=== PATIENT | female | born 1985 | race Caucasian/White ===

== ENCOUNTER 2019-11-07 10:22 | Emergency (ER) | payer MEDICAID, SELFPAY ==
[2019-11-07 10:24] VITALS: BP 126/82; PULSE 87; RESP 16; TEMP 36.4; O2SAT 99; BMI 29.0
--- NOTE | 2019-11-07 10:59 | ECG_ITS ---
[facility] Test Date: 2019-11-07 Pat Name: Christa Theodore Department: Room: Gender: Female Subgrade Tester: : 1985 Requested By: Al Pearson Order Number: [id number] Constance MD: Baylee Nunez M.D. Measurements Intervals [place] Rate: 83 P: 54 IN: 130 QRS: 62 QRSD: 92 T: 58 QT: 360 QTc: 425 Interpretive Statements SINUS RHYTHM No previous ECG available for comparison Electronically Signed On 11-07-2019 20:43:22 CDT by Baylee Nunez M.D. [id number]
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
[2019-11-07 11:02] LABS: Arterial Blood Gas Hematocrit 49.9 % (37-47); Blood Gas Allen Test Pos; Blood Gas Operator Identificat CAK; Blood Gas Sample Site Radial, left; Blood Gas Sample Type Arterial; Carboxyhemoglobin 0.6 %THgb (0.4-20.1); HCO3 ABG 16.9 mmol/L (22-26); HGB O2 Sat 98.4 % (95-100); Ionized Calcium Level - ABG 1.2 mmol/L (1.1-1.4); Methemoglobin 0.7 % (0.4-1.5); Oxygen Device ROOM AIR; Oxygen Saturation ABG 99.7; Potassium Level - ABG 3.6 mmol/L (3.5-5.0); Total Hemoglobin 16.3 g/dL (12-16)
[2019-11-07 11:05] LABS: ABG PCO2 18.2 mmHg (35-45); ABG PH Result 7.58 (7.35-7.45)
[2019-11-07] MEDS: LORazepam 2 mg/mL INJ 1 mL IVP (11:22)
[2019-11-07 11:23] VITALS: BP 116/73; PULSE 71; RESP 22; O2SAT 99
[2019-11-07 11:28] LABS: Basophils # 0.1 10^3/uL (0.0-0.1); Basophils % 0.7 %; Eosinophils # 0.2 10^3/uL (0.0-0.8); Eosinophils % 2.5 %; Hemoglobin 15.9 g/dL (11.5-15.3); Lymphocytes # 1.8 10^3/uL (0.8-4.8); Lymphocytes % 21.4 %; Mean Corpuscular HGB Conc 33.1 g/dL (30.0-36.0); Mean Corpuscular Hemoglobin 30.7 pg (28.0-34.0); Mean Corpuscular Volume 92.7 fL (81-99); Mean Platelet Volume 11.2 fL (7.4-10.4); Monocytes # 0.5 10^3/uL (0.2-0.9); Monocytes % 6.1 %; Neutrophils # 5.89 10^3/uL (1.8-7.7); Neutrophils % 68.6 %; Nucleated Red Blood Cells % 0 %; Platelet Count 259 10^3/cmm (130-400); Red Blood Count 5.18 10^6/uL (4.1-5.3); Red Cell Distribution Width 14.2 % (12.1-15.1); White Blood Count 8.6 10^3/uL (4.0-10.0)
[2019-11-07 11:38] LABS: HCG, Serum Qual Negative (Negative)
[2019-11-07 11:45] LABS: Troponin(5th) Baseline 6 ng/L (0-10)
[2019-11-07 11:46] LABS: Alanine Aminotransferase 22 U/L (0-33); Alkaline Phosphatase 89 IU/L (35-105); Anion Gap 18.7 (5-19); Aspartate Amino Transferase 20 U/L (0-32); Blood Urea Nitrogen 7 mg/dL (6-20); Calcium 10.4 mg/dL (8.5-10.5); Carbon Dioxide 19 mmol/L (22-29); Chloride 105 mmol/L (98-107); Creatinine Clr Calc Pharmacy 104.7276; Glomerular Filtration Rate 81.2 mL/min (90-130); Glucose 99 mg/dL (65-115); Osmolality Calculated 284 mOsm/kg (285-295); Potassium 3.7 mmol/L (3.5-5.1); Sodium 139 mmol/L (136-145); Total Bilirubin 0.4 mg/dL (0.15-1.2)
[2019-11-07 11:53] LABS: Alcohol Level < 10 mg/dL (0-10)
[2019-11-07 11:54] VITALS: BP 121/83; PULSE 67; RESP 16; O2SAT 97
[2019-11-07 12:30] VITALS: BP 118/72; PULSE 78; RESP 18
[2019-11-07 12:55] VITALS: BP 118/72; PULSE 78; RESP 18
--- NOTE | 2019-11-08 08:41 | PC.SOCIAL ---
Referral received from ED provider for appt at [facility] [place]. Called [facility] [place] spoke with Ruthie Wild business support coordinator. Provided and Name. She will mail out new patient paperwork and call patient to let her know the process. No further needs identified.Will update patient.
--- NOTE | 2019-11-08 08:44 | PC.SOCIAL ---
Attempted to call patient to update her on previous note. She was unavailable left message with my number for pt to return call.
== END 2019-11-07 12:56 | disposition home or self-care (01) ==
PROVIDERS: Family Medicine; Emergency Provider Physician Assistant
DX: F41.0 Panic disorder [episodic paroxysmal anxiety] (principal); F41.9 Anxiety disorder, unspecified
CPT/HCPCS: 12345; 36415; 36600; 71045; 80051; 80053; 80307; 82810; 83986; 84484; 84703; 85025; 93005; 96374; 99283; J2060

== ENCOUNTER → 2019-11-21 12:36 | Outpatient (BNVA) | payer MEDICAID, SELFPAY | PROVIDERS: Visit Provider Psychiatry & Neurology Psychiatry | DX: F32.9 Major depressive disorder, single episode, unspecified (principal); F41.1 Generalized anxiety disorder; F43.10 Post-traumatic stress disorder, unspecified | CPT/HCPCS: 90792 ==

== ENCOUNTER → 2019-12-20 11:06 | Outpatient (BNVA) | payer MEDICAID, SELFPAY | PROVIDERS: Visit Provider Psychiatry & Neurology Psychiatry | DX: F32.9 Major depressive disorder, single episode, unspecified (principal); F43.10 Post-traumatic stress disorder, unspecified; F41.1 Generalized anxiety disorder | CPT/HCPCS: 99214 ==

== ENCOUNTER → 2019-12-25 11:25 | Outpatient (BNVA) | payer OTHER, SELFPAY | PROVIDERS: Visit Provider Psychiatry & Neurology Psychiatry | DX: F43.10 Post-traumatic stress disorder, unspecified (principal) | CPT/HCPCS: 99214 ==

== ENCOUNTER → 2020-01-02 11:13 | Outpatient (BNVA) | payer OTHER, SELFPAY | PROVIDERS: Visit Provider Psychiatry & Neurology Psychiatry | DX: F43.10 Post-traumatic stress disorder, unspecified (principal); F32.9 Major depressive disorder, single episode, unspecified; F41.1 Generalized anxiety disorder | CPT/HCPCS: 99214 ==

== ENCOUNTER → 2020-01-17 08:05 | Outpatient (BNVA) | payer OTHER, SELFPAY | PROVIDERS: Visit Provider Psychiatry & Neurology Psychiatry | DX: F43.10 Post-traumatic stress disorder, unspecified (principal); F33.9 Major depressive disorder, recurrent, unspecified; F41.1 Generalized anxiety disorder | CPT/HCPCS: 90834; 99214 ==

== ENCOUNTER → 2020-01-24 09:04 | Outpatient (BNVA) | payer OTHER, SELFPAY | PROVIDERS: Visit Provider Counselor Professional | DX: F43.12 Post-traumatic stress disorder, chronic (principal); F33.9 Major depressive disorder, recurrent, unspecified; F41.1 Generalized anxiety disorder | CPT/HCPCS: 90834 ==

== ENCOUNTER → 2020-01-31 08:52 | Outpatient (BNVA) | payer OTHER, SELFPAY | PROVIDERS: Visit Provider Counselor Professional | DX: F33.9 Major depressive disorder, recurrent, unspecified (principal); F43.12 Post-traumatic stress disorder, chronic; F41.1 Generalized anxiety disorder | CPT/HCPCS: 90834 ==

== ENCOUNTER → 2020-02-01 07:44 | Outpatient (BNVA) | payer MEDICAID, SELFPAY | PROVIDERS: Visit Provider Psychiatry & Neurology Psychiatry | DX: F41.1 Generalized anxiety disorder (principal); F43.10 Post-traumatic stress disorder, unspecified; F32.9 Major depressive disorder, single episode, unspecified; Z79.899 Other long term (current) drug therapy; Z03.89 Encounter for observation for other suspected diseases and conditions ruled out | CPT/HCPCS: 80061; 84443; 99214 ==

== ENCOUNTER → 2020-02-15 07:51 | Outpatient (BNVA) | payer OTHER, SELFPAY | PROVIDERS: Visit Provider Counselor Professional | DX: F43.12 Post-traumatic stress disorder, chronic (principal); F33.9 Major depressive disorder, recurrent, unspecified; F41.1 Generalized anxiety disorder | CPT/HCPCS: 90834 ==

== ENCOUNTER → 2020-02-22 08:12 | Outpatient (BNVA) | payer OTHER, SELFPAY | PROVIDERS: Visit Provider Psychiatry & Neurology Psychiatry | DX: F32.9 Major depressive disorder, single episode, unspecified (principal); F41.1 Generalized anxiety disorder | CPT/HCPCS: 99213 ==

== ENCOUNTER → 2020-03-28 12:23 | Outpatient (BNVA) | payer OTHER, SELFPAY | PROVIDERS: Visit Provider Psychiatry & Neurology Psychiatry | DX: F32.9 Major depressive disorder, single episode, unspecified (principal); F41.1 Generalized anxiety disorder | CPT/HCPCS: 99214 ==

== ENCOUNTER 2021-01-02 11:39 | Outpatient (CLI) | payer MEDICAID, SELFPAY ==
--- NOTE | 2021-01-02 11:45 | US_ITS ---
WS: [id number] ULTRASOUND PELVIS TECHNIQUE: Transabdominal and transvaginal. ULTRASOUND PELVIS TECHNIQUE: Transabdominal. CLINICAL INFORMATION: DYSMENORRHEA LMP: : No. COMPARISON: None. FINDINGS: Uterus Orientation: Anteverted. Size: 9.1 cm x 6.0 cm x 4.8 cm. Masses: None. Cervix: Long and closed Endometrium: Suspected polyp in the fundus with feeding vessel measuring 17 x 8.5 x 16.2 mm Adnexa: Right ovary not seen Left ovary size: 3.9 cm x 2.6 cm x 2.4 cm. Left ovary volume: 12.9 ccm3 Multifollicular left ovary. Free fluid: None. Other findings: None. US/US pelvic with transvaginal IMPRESSION: 1. Normal uterus and cervix. 2. Suspected polyp in the fundus with feeding vessel measuring 17 x 8.5 x 16.2 mm. This can be further evaluated with hysteroscopy. 3. Right ovary not visualized. 4. Multifollicular left ovary. 5. No free fluid in the cul-de-sac.
== END 2021-01-02 11:40 | disposition home or self-care (01) ==
PROVIDERS: PCP Family Medicine; Visit Provider Family Medicine
DX: N94.6 Dysmenorrhea, unspecified (principal)
CPT/HCPCS: 76830; 76856

== ENCOUNTER → 2021-01-03 16:22 | Outpatient (BNVA) | payer MEDICAID, SELFPAY | PROVIDERS: PCP Family Medicine; Visit Provider Obstetrics & Gynecology | DX: N93.9 Abnormal uterine and vaginal bleeding, unspecified (principal); R87.613 High grade squamous intraepithelial lesion on cytologic smear of cervix (HGSIL); N76.0 Acute vaginitis; B96.89 Other specified bacterial agents as the cause of diseases classified elsewhere; N84.0 Polyp of corpus uteri | CPT/HCPCS: 87491; 87591; 87661; 88305 ==

== ENCOUNTER → 2021-01-24 08:00 | Outpatient (BNVA) | payer MEDICAID, SELFPAY | PROVIDERS: PCP Family Medicine; Visit Provider Obstetrics & Gynecology | DX: R87.613 High grade squamous intraepithelial lesion on cytologic smear of cervix (HGSIL) (principal); Z20.822 Contact with and (suspected) exposure to COVID-19 | CPT/HCPCS: 87635 ==

== ENCOUNTER 2021-01-29 12:23 | Day surgery (SDC) | payer MEDICAID, SELFPAY ==
[2021-01-27 10:32] VITALS: BMI 31.4
--- NOTE | 2021-01-27 13:13 | ANES.PREANE2 ---
Pre-Anesthetic Assessment Pre-Anesthetic Assessment: Height/Weight: Height 1.68 m Weight 88.451 kg Proposed Procedure: Operation Date: 01/29/21 17:30 Proposed Procedures p Cold Knife Cone Biopsy 67541 R87.613/59363 R10.2(Not Applicable) - Derick Calderon MD s Laparoscopy Diagnostic(Not Applicable) - Derick Calderon MD Was Beta Andra taken within 24 hours: N/A Was Clonidine taken within 24 hours: N/A Social: Social History: Tobacco and No alcohol Exam: Pre-Anes Outpt Exam: alert, oriented x 3 and regular rate & rhythm Airway: Submandibular: WNL Cervical ROM: WNL MP: 2 Dentition: Chipped Metabolic: Metabolic: Morbid obesity Neuropsych: Neuropsych: Anxiety and Depression Anesthetic Plan: ASA status: 3 Anesthesia: General Risk of > 500 ml blood loss (7ml/kg in children): No PFSH Anesthesia PFSH: Medical History (Updated 01/23/21 @ 16:16 by Derick Calderon MD) EMPERATRIZ II (cervical intraepithelial neoplasia II) AN (generalized anxiety disorder) MDD (major depressive disorder) Family History Mother Diabetes Other Cancer Denies family history of CAD (coronary artery disease) Clotting disorder Dementia Hyperlipidemia Psychiatric illness Chronic kidney disease (CKD) Suicide Anesthesia complication Bleeding disorder Lung disease Hypertension Stroke Social History Smoking and tobacco status: current every day smoker e-cigarettes E-Cigarette Details: vaporizer device E-cig/vape details: 0.25mg Quit status (tobacco): considering quitting Second hand smoke exposure: No Smoking risk assessment/counseling performed?: Yes Tobacco counseling given: counseling >3 minutes Current gender identity: Female Data Anesthesia Cardiac Studies: No Data to Display
[2021-01-29 12:36] VITALS: BP 131/81; PULSE 74; RESP 16; TEMP 36.4; O2SAT 96
[2021-01-29 12:55] LABS: Add Urine Microscopic? NO; Charge for UA Resulting for Rev
[2021-01-29] MEDS: scopolamine 1.5 Patch 1 PATCH TRANSDERMA (13:00)
[2021-01-29] MEDS: sodium chloride 0.9% 500 ML IV (13:00)
[2021-01-29 13:12] LABS: OR HCG Qualitative Urine Negative (Negative)
[2021-01-29 13:16] LABS: Bilirubin Urine Neg (Negative); Blood Urine Neg (Negative); Glucose Urine UA Norm (Normal); Ketones Urine Negative (Negative); Leukocyte Esterase Urine Negative (Negative); Nitrate Urine Negative (Negative); Protein Urine Neg (Negative); Sulfosalicylic Acid Urine Negative (Negative); Urine Appearance Hazy (CLEAR); Urine Color Yellow (Yellow); Urobilinogen Urine Norm (Negative); pH Urine 8 (5-7)
[2021-01-29 13:19] LABS: Basophils # 0.1 10^3/uL (0.0-0.1); Basophils % 0.8 %; Eosinophils # 0.3 10^3/uL (0.0-0.8); Eosinophils % 3.8 %; Hematocrit 47.7 % (37.0-47.0); Hemoglobin 15.9 g/dL (11.5-15.3); Lymphocytes # 2.4 10^3/uL (0.8-4.8); Lymphocytes % 30.4 %; Mean Corpuscular HGB Conc 33.3 g/dL (30.0-36.0); Mean Corpuscular Hemoglobin 31.8 pg (28.0-34.0); Mean Corpuscular Volume 95.4 fl (81-99); Mean Platelet Volume 11.4 fL (7.4-10.4); Monocytes # 0.5 10^3/uL (0.2-0.9); Monocytes % 6.6 %; Neutrophils # 4.59 10^3/uL (1.8-7.7); Neutrophils % 57.4 %; Nucleated Red Blood Cells % 0 %; Platelet Count 259 10^3/cmm (130-400); Red Cell Distribution Width 15.1 % (12.1-15.1)
[2021-01-29 13:34] LABS: Anion Gap 15.9 (5-19); Blood Urea Nitrogen 10 mg/dL (6-20); Carbon Dioxide 23 mmol/L (22-29); Chloride 104 mmol/L (98-107); Glomerular Filtration Rate 112.5 mL/min (90-130); Glucose 81 mg/dL (65-115); Osmolality Calculated 286 mOsm/kg (285-295); Potassium 3.9 mmol/L (3.5-5.1); Sodium 139 mmol/L (136-145)
[2021-01-29] MEDS: sodium chloride 0.9% 1,000 ML 30 ML IV (13:45)
--- NOTE | 2021-01-29 14:03 | W.PM.OPSUD ---
Surgery/Procedure H&P Update DATE OF PROCEDURE: January 29, 2021 DATE H&P PERFORMED: 01/27/21 H&P UPDATE INFORMATION: I have reviewed H&P completed within last 30 days, I have examined patient prior to procedure and No changes to prior documentation PREOP DIAGNOSIS: Pelvic pain, abnormal Pap smear PLANNED PROCEDURE: Operation Date: 01/29/21 14:00 Proposed Procedures p Cold Knife Cone Biopsy 23319 R87.613/71758 R10.2(Not Applicable) - Derick Calderon MD s Laparoscopy Diagnostic(Not Applicable) - Derick Calderon MD
--- NOTE | 2021-01-29 14:14 | ANES.PAUD2 ---
Pre-Anesthetic Update Pre-Anesthetic Assessment: Date of Surgery/Procedure: 01/29/21 Preop Diagnosis: Pelvic pain, abnormal Pap smear Proposed Procedure: Operation Date: 01/29/21 14:00 Proposed Procedures p Cold Knife Cone Biopsy 70068 R87.613/61117 R10.2(Not Applicable) - Derick Calderon MD s Laparoscopy Diagnostic(Not Applicable) - Derick Calderon MD Any changes to Pre-Anesthetic Assessment?: No Last Intake: Intake Last Liquid Date 01/28/21 Last Liquid Time 23:00 Last Solid Date 01/28/21 Last Solid Time 23:00 Labs Last 48hrs: Laboratory Results - last 48 hr 01/29/21 01/29/21 01/29/21 12:38 12:38 12:56 WBC 8.0 RBC 5.00 Hgb 15.9 H Hct 47.7 H MCV 95.4 MCH 31.8 MCHC 33.3 RDW 15.1 Plt Count 259 MPV 11.4 H Neut % (Auto) 57.4 Lymph % (Auto) 30.4 Mckenzie % (Auto) 6.6 Eos % (Auto) 3.8 Baso % (Auto) 0.8 Neut # (Auto) 4.59 Lymph # (Auto) 2.4 Mckenzie # (Auto) 0.5 Eos # (Auto) 0.3 Baso # (Auto) 0.1 Nucleated RBC % (a uto) 0 Nucleated RBCs # 0.0 Sodium Potassium Chloride Carbon Dioxide Anion Gap BUN Creatinine GFR Calculation Glucose Calculated Osmolal ity Calcium Urine Color Yellow Urine Appearance Hazy A Urine pH 8 H Ur Specific Gravit y 1.010 Urine Protein Neg Urine Glucose (UA) Norm Urine Ketones Negative Urine Blood Neg Urine Nitrate Negative Urine Bilirubin Neg Prot Sulfosalicyli c Acd Negative Urine Urobilinogen Norm Ur Leukocyte Shelly ase Negative Urine HCG, Qual Negative 01/29/21 12:56 WBC RBC Hgb Hct MCV MCH MCHC RDW Plt Count MPV Neut % (Auto) Lymph % (Auto) Mckenzie % (Auto) Eos % (Auto) Baso % (Auto) Neut # (Auto) Lymph # (Auto) Mckenzie # (Auto) Eos # (Auto) Baso # (Auto) Nucleated RBC % (a uto) Nucleated RBCs # Sodium 139 Potassium 3.9 Chloride 104 Carbon Dioxide 23 Anion Gap 15.9 BUN 10 Creatinine 0.6 GFR Calculation 112.5 Glucose 81 Calculated Osmolal ity 286 Calcium 9.0 Urine Color Urine Appearance Urine pH Ur Specific Gravit y Urine Protein Urine Glucose (UA) Urine Ketones Urine Blood Urine Nitrate Urine Bilirubin Prot Sulfosalicyli c Acd Urine Urobilinogen Ur Leukocyte Shelly ase Urine HCG, Qual Vitals: Temperature 97.6 F 01/29/21 12:36 Temperature Source Temporal Artery S can 01/29/21 12:36 Pulse Rate 74 01/29/21 12:36 Respiratory Rate 16 01/29/21 12:36 Blood Pressure 131/81 01/29/21 12:36 Blood Pressure Alpa n 97 01/29/21 12:36 Pulse Oximetry 96 01/29/21 12:36 Oxygen Delivery Me thod 01/29/21 12:36 Exam: Pre-Anes Outpt Exam: alert, oriented x 3, clear to auscultation bilaterally and regular rate & rhythm Cardiac Studies: No Data to Display
--- NOTE | 2021-01-29 15:14 | SUR.OPER ---
1514 lugols, monsels solution and acetic acid used on the cervix by dr garcia
[2021-01-29 15:38] VITALS: BP 117/75; PULSE 76; RESP 18; TEMP 36.2; O2SAT 99
--- NOTE | 2021-01-29 15:38 | P.OP_ITS ---
Operative Report Date of procedure: January 29, 2021 Pre-op Diagnosis: Pelvic pain, abnormal Pap smear Post-op diagnosis: same Procedure Done: Diagnostic laparoscopy. Lysis of adhesions. Cervical cone biopsy Specimens removed/disposition: Colon biopsy Pathology: Colon biopsy Surgeon: Derick Calderon MD Anesthesia: General Estimated blood loss (mL): 10 IV fluids (mL): 1,100 Urine output (mL): 100 Condition: stable Disposition: PACU Procedure: After informed consent, the patient was taken to the operating room where general anesthesia was administered. The patient was examined under anesthesia and found to have a normal uterus with normal adnexa. She was placed in the dorsal lithotomy position and prepped and draped in sterile fashion. Pre- Procedure Time-Out verifying the correct patient identity, correct procedure verified with consent, correct site and side, correct patient position, availa bility of correct implants and any special equipment or requirements was performed and acknowledge by the OR team. A weighted speculum was placed in the vagina, and the anterior lip of cervix was grasped with the single toothed tenaculum. A uterine manipulator was advanced into the endocervical. Tenaculum was removed after uterine manipulator was secured. The speculum was removed from the vagina. An intraumbilical incision was made with a scalpel. While tenting up on the abdomen, a Verres needle with sleeve was admitted into the intra-abdominal cavity. A saline drop test was performed and noted to be within normal limits. Pneumoperitoneum was attained with 4 liters of carbon dioxide. The Verres needle was removed. A 5 mm trocar and sleeve were admitted into the abdomen and laparoscopic confirmation of location was achieved, A second incision was made 3 cm above the symphysis pubis, and a 5 mm trocar and sleeve were admitted into the abdomen under direct, laparoscopic visualization without complication. A abdominal anatomy survey revealed right abdominal wall adhesions. The pelvic survey shows normal uterus, left and right adnexa. Right adnexa was partially adhered to the colon. The right abdominal pelvic wall adhesions were lysed without complication with laparoscopic scissors. A 5 mm blunt probe was advanced through the second trocar sleeve, and light manipulation of ovaries and uterus to assess the posterior aspects was performed. Carbon dioxide was allowed to escape from the abdomen. The instruments were removed, and skin was closed in a subcuticular fashion with 3-0 Vicryl and covered with Dermabond. The instruments were removed from the vagina, and excellent hemostasis was noted. Then we proceeded to perform the cervical cone biopsy. the patient was placed in the dorsal lithotomy position, and prepped and draped in the usual sterile fashion. A time-out procedure was performed. The patient was examined under anesthesia and found to have a normal uterus with normal adnexa. A weighted speculum was then placed in the patient's vagina and the anterior lip of the cervix grasped with the singed toothed tenaculum A uterine sound was then advanced into the cervix to determine its direction and length. The decending cervical branchs of the uterine arteries were ligated with 2-0 Vicryl bilaterally at the level of the internal os. Attention was then turned to the cervix where it was stain with Lugol?s solution to hightlight the lesion. The paracervical area was then circumferentially infiltrated using Lidocaine 2% with epinephrine. A [employer] Cone Biopsy Excisor was used to cut the cone biopsy in circular fashion and following removal of the specimen a suture was placed at the 12 o?clock location and fixed in formalin. Bleeding was minimal. The patient tolerated the procedure well, sponge, lap and needle counts were correct times two She was taken to the recovery room in good condition. The patient tolerated the procedure well, and sponge, lap and needle count were correct times two. The patient taken to the recovery room in good condition.
[2021-01-29 15:40] VITALS: BP 117/73; PULSE 77; RESP 18; O2SAT 99
[2021-01-29 15:46] VITALS: BP 124/68; PULSE 77; RESP 18; TEMP 36.2; O2SAT 99
[2021-01-29 15:50] VITALS: BP 118/77; PULSE 74; RESP 15; TEMP 36.4; O2SAT 97
[2021-01-29] MEDS: HYDROcodone-acetaminophen 5-325 mg Tablet 1 TAB PO (15:59)
[2021-01-29 16:05] VITALS: BP 123/71; PULSE 71; RESP 16; TEMP 36.6; O2SAT 98
--- NOTE | 2021-01-29 16:15 | ANE.PACU2 ---
Inpatient post-anesthesia follow up: Airway intact: Yes Vital signs: Temperature 98 F Pulse Rate 71 Respiratory Rate 16 Blood Pressure 123/71 Pulse Oximetry 98 Oxygen Delivery Me thod Room Air Oxygen Flow Rate 8 Fraction of Inspir ed Oxygen Hydration adequate: Yes Nausea and vomiting: No Pain level: 2 Mental status: Baseline
== END 2021-01-29 16:46 | disposition home or self-care (01) ==
PROVIDERS: PCP Family Medicine; Visit Provider Obstetrics & Gynecology
PROC: 0UB97ZZ Excision of Uterus, Via Natural or Artificial Opening (ICD-10-PCS; CPT 57520; principal; 2021-01-29 13:50)
PROC: (CPT 49320; 2021-01-29 13:50)
DX: R10.2 Pelvic and perineal pain (principal); R89.6 Abnormal cytological findings in specimens from other organs, systems and tissues; E66.01 Morbid (severe) obesity due to excess calories; Z68.31 Body mass index [BMI] 31.0-31.9, adult; F41.9 Anxiety disorder, unspecified; F32.9 Major depressive disorder, single episode, unspecified; Z83.3 Family history of diabetes mellitus; F17.290 Nicotine dependence, other tobacco product, uncomplicated
CPT/HCPCS: 49320; 57522; 36415; 80048; 81003; 81025; 84703; 85025; 86850; 86900; 88307; 96365; J0690; J1100; J1885; J2405; J2704; J2710; J3010; J3490; J7030; J7040

== ENCOUNTER 2021-03-15 15:35 | Emergency (ER) | payer MEDICAID, SELFPAY ==
[2021-03-15 15:45] VITALS: BP 115/79; PULSE 69; RESP 16; TEMP 36.6; O2SAT 97
--- NOTE | 2021-03-15 16:00 | W.ED.WOUNDLC ---
HPI - Wound/Laceration General: Chief Complaint: Wound/Laceration Stated Complaint: Sliced finger rt ring finger Time Seen by Provider: 03/15/21 15:49 Source: patient Mode of arrival: ambulatory Limitations: no limitations History of Present Illness: HPI narrative: 35-year-old female presents to the ER today for right ring finger laceration. Patient reports she was using a mandolin to thinly slice something when it slipped and she caught her finger. Patient reports the entire tip of the ring finger is gone. She reports bleeding would not stop at home that is why she came into the ER. Patient reports pain and burning. She reports normal movement in the finger. Patient's tetanus status is unknown. Onset (ago): minute(s) Extremity Location: Right: hand (ring finger) Patient tetanus UTD: No Context: accidental Associated symptoms: Denies chills, fever(s), nausea or vomiting Review of Systems General: Reports: 10 or more systems reviewed and unremarkable except in HPI and below Const: Denies: fever(s), chills or body aches ENMT: Denies: throat pain, nasal discharge or nasal congestion Card: Denies: chest pain or palpitations Resp: Denies: dyspnea, productive cough or wheezing GI: Denies: abdominal pain, nausea, vomiting, diarrhea or constipation Musc: Reports: extremity pain (right ring finger); Denies: neck pain or back pain Skin/Breast: Reports: other (laceration to R ring finger) Neuro: Denies: headache(s), numbness in extremities or dizziness PFSH ED PFSH: Medical History Aftercare following surgery of the genitourinary system EMPERATRIZ II (cervical intraepithelial neoplasia II) AN (generalized anxiety disorder) MDD (major depressive disorder) Surgical History History of appendectomy History of cholecystectomy History of tubal ligation S/P conization of cervix 01/29/2021- diagnostic laparoscopy, lysis of adhesions, cervical cone biopsy performed by Dr. Calderon at [facility] Family History Mother Diabetes Other Cancer Denies family history of CAD (coronary artery disease) Clotting disorder Dementia Hyperlipidemia Psychiatric illness Chronic kidney disease (CKD) Suicide Anesthesia complication Bleeding disorder Lung disease Hypertension Stroke Social History Smoking and tobacco status: current every day smoker cigarettes Packs smoked per day: 1 Alcohol intake: current Alcohol intake frequency: 3 or more drinks per day Alcohol type: beer Current gender identity: Female Physical Exam Const: COMMON NORMALS: average body habitus and patient oriented x3 GENERAL APPEARANCE: cooperative; not comfortable HENMT: COMMON NORMALS: normocephalic, external ears normal and Normal external nose present HEAD & SCALP: normocephalic NOSE: Normal external nose present EXTERNAL EAR: Yes external ears normal Eye: COMMON NORMALS: conjunctivae normal GENERAL EYE: appearance normal, both eyes and all related structures CONJUNCTIVA: Yes conjunctivae normal Neck/C-Spine: COMMON NORMALS: full ROM Resp: COMMON NORMALS: normal respiratory effort EFFORT & INSPECTION: Yes able to speak in complete sentences Cardio: COMMON NORMALS: regular rate and regular rhythm RATE: regular rate RHYTHM: regular rhythm Extremity: COMMON NORMALS: full ROM RIGHT UPPER EXTREMITY: Yes hand & digits Right hand and digits: Yes inspection (avulsion laceration to the R ring finger. ), Yes ROM exam (normal) and Yes tendon exam (normal) Neuro: COMMON NORMALS: patient oriented x3, moves all extremities, no sensory deficits noted and gait normal Psych: COMMON NORMALS: mental status grossly normal, Normal thought process present, cooperative, normal affect and speech normal SPEECH: Yes normal speech THOUGHT PROCESS: Normal thought process present Skin: TRAUMA: laceration (avulsion laceration to the distal tip of the R ring finger) avulsion; sensation not intact (decreased sensation tip of finger (pain however reported)) NAILS: normal OTHER: no nail involvement Procedures Laceration Laceration 1: Site: hand Side (If applicable): right Description: other (avulsion) Depth: simple, single layer Technique: other (pressure dressing, no way for closure) Course ED course: Patient presents to the ER today for right distal ring finger avulsion laceration. Patient reports she was using a mandolin when this happened. Her tetanus status is unknown at this time. Vital Signs: Vital signs: Vital Signs Temperature 97.9 F 03/15/21 15:45 Pulse Rate 69 03/15/21 15:45 Respiratory Rate 16 03/15/21 15:45 Blood Pressure 115/79 03/15/21 15:45 Pulse Oximetry 97 03/15/21 15:45 MDM - Wound/Laceration MDM Narrative: Medical decision making narrative: 35-year-old female presents to the ER today for right ring finger laceration. Patient was using a mandolin when she sliced the distal tip of the right ring finger off. Patient reports active bleeding. Patient was offered a digital block however refused at this time. We will go ahead and do oral Toradol for pain. Wound care was discussed. Wound was dressed with a Vaseline gauze and pressure dressing to stop the bleeding. Tourniquet applied for 5 minutes to right ring finger. Patient given Vaseline gauze to take home and change dressing in 48 hours. Follow-up with PCP in 5 days for wound check. Return to the ER with any new or worsening symptoms. Tdap updated in ER today. Critical Care Time Critical Care Time: Critical Care Time: No Discharge Plan Discharge Patient Disposition: Home Clinical Impression: Laceration of right ring finger Qualifiers: Encounter type: initial encounter Damage to nail status: without damage Foreign body presence: without foreign body Qualified Code(s): S61.214A - Laceration without foreign body of right ring finger without damage to nail, initial encounter Condition: Stable Prescriptions: No Action ibuprofen 800 mg tablet 800 mg PO TID PRN (Reason: pain) Qty: 60 RF: 0 hydrocodone-acetaminophen 5-325 mg tablet 1 tab PO Q4H PRN (Reason: pain) Qty: 20 RF: 0 acetaminophen 325 mg capsule 325 mg PO Q4H PRN (Reason: fever or pain) Qty: 60 RF: 0 Discharge Orders: Discharge ED (Routine); Ordered 03/15/21 Ordered By: Olga Mckeon Referrals: Chris Weinberg MD [Primary Care Provider] - Discharge Diet: Usual diet Discharge Activity: Resume usual activity Patient Instructions: Opioid Safety Activity Restrictions/Additional Instructions: Wound care as discussed. Leave current dressing on for 48 hours. And off thin and clean with warm soapy water and replace dressing as discussed. Follow-up with PCP in 5 to 7 days for wound check. Return to the ER with any new or worsening symptoms. Coding Level of Care Code ED Microbiological Lab Technician for Isma Nguyen
[2021-03-15] MEDS: ketorolac 10 mg Tablet PO (16:01)
[2021-03-15] MEDS: tetanus-dipt-pertussis 0.5 mL SDV IM (16:15)
== END 2021-03-15 16:23 | disposition home or self-care (01) ==
PROVIDERS: Emergency Provider Physician Assistant; PCP Family Medicine
DX: S61.214A Laceration without foreign body of right ring finger without damage to nail, initial encounter (principal); F17.210 Nicotine dependence, cigarettes, uncomplicated; W26.8XXA Contact with other sharp object(s), not elsewhere classified, initial encounter; Z23 Encounter for immunization
CPT/HCPCS: 90471; 90715; 99283

== ENCOUNTER → 2021-06-06 08:54 | Outpatient (BNVA) | payer MEDICAID, SELFPAY | PROVIDERS: PCP Family Medicine; Visit Provider Obstetrics & Gynecology | DX: Z20.822 Contact with and (suspected) exposure to COVID-19 (principal) | CPT/HCPCS: 87635 ==

== ENCOUNTER 2021-06-11 11:11 | Observation (INO) | payer MEDICAID, SELFPAY ==
[2021-06-09 11:09] VITALS: BMI 29.0
--- NOTE | 2021-06-09 15:54 | P.ANESASSM_ITS ---
Pre-Anesthetic Assessment Height/Weight: Height 1.7 m Weight 83.915 kg Preop Diagnosis: Pelvic pain, abnormal Pap smear Operation Date: 06/11/21 08:10 Proposed Procedures p Total Vaginal [id number]/r10.2.G89.29(Not Applicable) - Derick Calderon MD Familial anesthetic complications: None Was Beta Andra taken within 24 hours: N/A Was Clonidine taken within 24 hours: N/A Social Tobacco and No alcohol Exam alert, oriented x 3, clear to auscultation bilaterally and regular rate & rhythm Airway Submandibular: within normal limits Cervical ROM: within normal limits Mallampati: Class II Dentition: chipped Pulmonary Chronic Obstructive Pulmonary Disease Neuropsych Anxiety and Depression Anesthetic Plan ASA status: 2 Anesthesia: General Risk of > 500 ml blood loss (7ml/kg in children): Yes, adequate IV access and fluids planned Medications/Allergies Home Medications Medication Instructions Recorded Confirmed Last Taken Type ibuprofen 800 mg tablet 800 mg PO TID PRN #60 tab 01/29/21 06/09/21 Unknown Rx Allergies Allergy/AdvReac Type Severity Reaction Status Date / Time No Known Allergies Allergy Verified 06/09/21 11:08 [facility] Anesthesia Medical History Aftercare following surgery of the genitourinary system EMPERATRIZ II (cervical intraepithelial neoplasia II) AN (generalized anxiety disorder) MDD (major depressive disorder) Surgical History History of appendectomy History of cholecystectomy History of tubal ligation S/P conization of cervix 01/29/2021- diagnostic laparoscopy, lysis of adhesions, cervical cone biopsy performed by Dr. Calderon at [facility] Family History Mother Diabetes Other Cancer Denies family history of CAD (coronary artery disease) Clotting disorder Dementia Hyperlipidemia Psychiatric illness Chronic kidney disease (CKD) Suicide Anesthesia complication Bleeding disorder Lung disease Hypertension Stroke Social History Smoking and tobacco status: current every day smoker cigarettes Packs smoked per day: 1 Alcohol intake: current Alcohol intake frequency: 3 or more drinks per day Alcohol type: beer Current gender identity: Female Female Reproductive History Date of last menstrual period: 05/26/21 Data Anesthesia Cardiac Studies: No Data to Display
[2021-06-11] VITALS (26 sets, daily range): BP systolic 99–133; BP diastolic 62–91; PULSE 52–86; RESP 12–19; TEMP 36.1–36.7; O2SAT 92–100
[2021-06-11] MEDS: sodium chloride 0.9% 500 ML IV (07:07)
[2021-06-11] MEDS: scopolamine 1.5 Patch 1 PATCH TRANSDERMA (07:08)
[2021-06-11 07:22] LABS: Basophils # 0.1 10^3/uL (0.0-0.1); Basophils % 0.8 %; Eosinophils # 0.4 10^3/uL (0.0-0.8); Eosinophils % 4.2 %; Hematocrit 50.9 % (37.0-47.0); Hemoglobin 16.8 g/dL (11.5-15.3); Lymphocytes # 2.4 10^3/uL (0.8-4.8); Lymphocytes % 27.8 %; Mean Corpuscular Hemoglobin 30.7 pg (28.0-34.0); Mean Corpuscular Volume 92.9 fl (81-99); Mean Platelet Volume 11.1 fL (7.4-10.4); Monocytes # 0.6 10^3/uL (0.2-0.9); Monocytes % 7.4 %; Neutrophils # 5.01 10^3/uL (1.8-7.7); Nucleated Red Blood Cells % 0 %; Platelet Count 285 10^3/cmm (130-400); Red Blood Count 5.48 10^6/uL (4.1-5.3); Red Cell Distribution Width 16.3 % (12.1-15.1); White Blood Count 8.5 10^3/uL (4.0-10.0)
[2021-06-11] MEDS: midazolam 1 mg/mL INJ 2 mL 2 MG IVP (07:31)
[2021-06-11 07:35] LABS: OR HCG Qualitative Urine Negative (Negative)
[2021-06-11] MEDS: sodium chloride 0.9% 1,000 ML 30 ML IV (07:36)
[2021-06-11 07:39] LABS: Alanine Aminotransferase 14 U/L (0-33); Albumin Level 4.6 g/dL (3.5-5.2); Alkaline Phosphatase 88 IU/L (35-105); Anion Gap 16.4 (5-19); Aspartate Amino Transferase 20 U/L (0-32); Blood Urea Nitrogen 13 mg/dL (6-20); Calcium 9.4 mg/dL (8.5-10.5); Carbon Dioxide 20 mmol/L (22-29); Chloride 105 mmol/L (98-107); Globulin 3.3 g/dL (1.3-4.6); Glomerular Filtration Rate 94.2 mL/min (90-130); Glucose 139 mg/dL (65-115); Osmolality Calculated 286 mOsm/kg (285-295); Potassium 4.4 mmol/L (3.5-5.1); Sodium 137 mmol/L (136-145); Total Bilirubin 0.5 mg/dL (0.15-1.2); Total Protein 7.9 g/dL (6.6-8.7)
--- NOTE | 2021-06-11 08:05 | W.PM.OPSUD ---
Surgery/Procedure H&P Update DATE OF PROCEDURE: June 11, 2021 DATE H&P PERFORMED: 02/11/22 H&P UPDATE INFORMATION: I have reviewed H&P completed within last 30 days and No changes to prior documentation PREOP DIAGNOSIS: chronic pelvic pain PLANNED PROCEDURE: Operation Date: 06/11/21 08:10 Proposed Procedures p Total Vaginal [id number]/r10.2.G89.29(Not Applicable) - Derick Calderon MD
[2021-06-11] MEDS: ceFOXitin 2,000 MG in sodium chloride 0.9% (plus) 50 ML 100 MG IV (08:14)
[2021-06-11 08:36] LABS: Add Urine Microscopic? NO; Charge for UA Resulting for Rev
--- NOTE | 2021-06-11 08:40 | P.ANESUD_ITS ---
Pre-Anesthetic Update Pre-Anesthetic Assessment: Date of Surgery/Procedure: 06/11/21 Preop Daisy gnosis: chronic pelvic pain Proposed Procedure: Operation Date: 06/11/21 08:10 Proposed Procedures p Total Vaginal [id number]/r10.2.G89.29(Not Applicable) - Derick Calderon MD Any changes to Pre-Anesthetic Assessment?: No Last Intake: Intake Last Liquid Date 06/10/21 Last Liquid Time 22:00 Last Solid Date 06/10/21 Last Solid Time 19:30 Labs Last 48hrs: Short CBC 06/11/21 Range/Units 07:05 WBC 8.5 (4.0-10.0) 10^3/ uL Hgb 16.8 H (11.5-15.3) g/dL Hct 50.9 H (37.0-47.0) % MCV 92.9 (81-99) fl Plt Count 285 (130-400) 10^3/c mm Neut % (Auto) 59.0 % Neut # (Auto) 5.01 (1.8-7.7) 10^3/u L BMP 06/11/21 07:05 Sodium 137 Potassium 4.4 Chloride 105 Carbon Dioxide 20 L BUN 13 Creatinine 0.7 Glucose 139 H Calcium 9.4 Liver Function 06/11/21 Range/Units 07:05 Total Bilirubin 0.5 (0.15-1.2) mg/dL AST 20 (0-32) U/L ALT 14 (0-33) U/L Alkaline Phosphata se 88 (35-105) IU/L Albumin 4.6 (3.5-5.2) g/dL Vitals: Temperature 97.5 F L 06/11/21 06:55 Temperature Source Temporal Artery S can 06/11/21 06:55 Pulse Rate 72 06/11/21 06:55 Respiratory Rate 16 06/11/21 06:55 Blood Pressure 122/80 06/11/21 06:55 Blood Pressure Alpa n 94 06/11/21 06:55 Pulse Oximetry 99 06/11/21 06:55 Oxygen Delivery Me thod 06/11/21 06:56 Exam: Pre-Anes Outpt Exam: alert, oriented x 3, clear to auscultation bilater ally and regular rate & rhythm Cardiac Studies: No Data to Display
[2021-06-11 09:12] LABS: Bilirubin Urine Neg (Negative); Blood Urine Neg (Negative); Glucose Urine UA Norm (Normal); Ketones Urine Negative (Negative); Leukocyte Esterase Urine Negative (Negative); Nitrate Urine Negative (Negative); Protein Urine Neg (Negative); Urine Appearance Clear (CLEAR); Urine Color Yellow (Yellow); Urobilinogen Urine Norm (Negative); pH Urine 5 (5-7)
--- NOTE | 2021-06-11 09:30 | P.OP_ITS ---
Operative Report Date of procedure: June 11, 2021 Pre-op diagnosis: Preop Diagnosis chronic pelvic pain Post-op diagnosis: Chronic pelvic pain Post-op findings: Enlarged uterus Procedure done: Total vaginal hysterectomy Specimens removed/disposition: Uterus Surgeon: Derick Calderon MD Estimated blood loss: 50 mL IV fluids (mL): 800 Urine output (mL): 100 Procedure: After informed consent and risks, benefits, indications and alternatives reviewed with the patient was taken to the operating room. The patient was placed in dorsal lithotomy position prepped, and draped in the usual sterile fashion. The pre-procedure timeout verifying the correct patient, procedure, site and side, could not requirements was performed and acknowledge by the OR team. A Escamilla catheter was placed. A Bookwalter vaginal retractor was placed into the vagina in usual manner visualize the cervix. Cervix was grasped with a single tooth tenaculum and circumferentially infiltrated with 2% Xylocaine with epinephrine. Then cervix was circumferentially incised with bovie and the bladder was dissected off the pubovesical cervical fascia anteriorly with a sponge stick and Metzenbaum scissors. The anterior peritoneal reflection was identified and the anterior cul-de-sac was entered sharply with Metzenbaum scissors. The same procedure was performed posteriorly and a posterior colpotomy was made through the posterior cul-de-sac space without difficulty and the posterior blade of the Bookwalter vaginal retractor was advanced posteriorly into the cul-de-sac. At this time, the left and right uterosacral ligaments were isolated and ligated with 0 Vicryl. The Enseal device was placed over the uterosacral ligaments on either side and was then used in a serial fashion up through the cardinal ligaments bilaterally cross-clamped, cut, and sealed with the Enseal device. Finally, the uterine arteries were cross-clamped, cut, sealed and ligated with the Enseal device. Hemostasis was assured. The broad ligaments were then serially clamped, sealed and cut with the Enseal device on both sides. Excellent hemostasis was visualized. Both cornua were clamped, sealed and cut with the Enseal device. T hen the pedicles were then suture ligated with excellent hemostasis. The uterus was excised and submitted for pathologic evaluation. No other abnormalities were noted in the pelvic cavity. The peritoneum was then closed in a pursestring fashion with 0 Vicryl suture. The vaginal cuff angles were closed with [id number] #0 Vicryl suture on both sides and transfixed with the ipsilateral cardinal and uterosacral ligaments. The remainder of the vaginal cuff was closed with #0 Vicryl in a running locked fashion. At this time, instruments were removed from the vagina at hemostasis assured. Escamilla catheter was noted yielding clear norma urine. The patient was taken out of dorsal lithotomy position and awakened from the general anesthesia. The patient tolerated the procedure well and was taken to the PACU recovery room in a stable condition. Sponge, lap, needle and instruments counts were correct x3.
[2021-06-11] MEDS: fentaNYL 50 mcg/mL INJ 2mL IVP ×2 (09:54→10:00)
[2021-06-11] MEDS: HYDROmorphone 1 mg/mL INJ 1 mL 0.5 MG IVP ×3 (10:08→10:35)
[2021-06-11] MEDS: sodium chloride 0.9% 1,000 ML 30 ML (10:38)
--- NOTE | 2021-06-11 10:43 | PC.NURSE ---
Report given to REFUGIO Grimes.
--- NOTE | 2021-06-11 12:49 | ANE.PACU2 ---
Inpatient post-anesthesia follow up: Airway intact: Yes Vital signs: Temperature 97.3 F Pulse Rate 59 Respiratory Rate 14 Blood Pressure 107/68 Pulse Oximetry 96 Oxygen Delivery Me thod Room Air Oxygen Flow Rate 6 Fraction of Inspir ed Oxygen Hydration adequate: Yes Nausea and vomiting: No Pain level: 3 Mental status: Baseline
[2021-06-11] MEDS: ketorolac 30 mg/mL INJ IVP ×2 (15:02→21:11)
[2021-06-11] MEDS: HYDROcodone-acetaminophen 5-325 mg Tablet PO ×2 (15:56→21:55)
[2021-06-11] MEDS: dextrose 5%-lactated ringers 1,000 ML 125 ML IV (19:43)
[2021-06-11] MEDS: hyDROXYzine 25 mg Capsule 50 MG PO (21:12)
[2021-06-12] MEDS: HYDROcodone-acetaminophen 5-325 mg Tablet PO ×2 (03:56→09:56)
[2021-06-12 04:10] VITALS: BP 112/67; PULSE 52; RESP 16; O2SAT 98
[2021-06-12 04:33] LABS: Hematocrit 42.9 % (37.0-47.0); Mean Corpuscular HGB Conc 32.6 g/dL (30.0-36.0); Mean Corpuscular Volume 95.1 fl (81-99); Mean Platelet Volume 11.7 fL (7.4-10.4); Platelet Count 235 10^3/cmm (130-400); Red Blood Count 4.51 10^6/uL (4.1-5.3); Red Cell Distribution Width 16.1 % (12.1-15.1); White Blood Count 15.9 10^3/uL (4.0-10.0)
[2021-06-12] MEDS: docusate sodium 100 mg Capsule PO (09:56)
[2021-06-12] MEDS: ibuprofen 800 mg tablet PO (09:56)
--- NOTE | 2021-06-12 12:12 | P.DS_ITS ---
Discharge Providers TREATING ENGINEER Date of Admission: 06/11/21 11:11 Date of Discharge: 06/12/21 Attending Provider at Admission: Derick Calderon MD Attending Provider at Discharge: Derick Calderon MD Primary TREATING ENGINEER: Derick Calderon MD Primary Care Provider: Chris Weinberg MD Reason for Visit Reason for Visit: chronic pelvic pain R10.2,G89.29 Brief History: Mrs. Dallas is a 35-year-old female with a history of chronic pelvic pain unresponsive to medical management. Hospital Course Hospital Course Mrs. Dallas admitted for planned total vaginal hysterectomy due to chronic pelvic pain unresponsive to medical management. The total vaginal hysterectomy was performed without complications. Overnight observation uneventful. She is status post total vaginal hysterectomy postoperative day one, afebrile and hemodynamically stable. Tolerating diet well. Ambulating without difficulty. Passing flatus. Had adequate urine output. Physical Exam Narrative: GA: Alert and oriented ?3. HEENT: WNL. Heart: Regular rate and rhythm. Lungs: Clear to auscultation bilaterally. Abdomen: Bowel sounds present, minimal tenderness. PAPER FOLDER: No bleeding. Extremities: No edema, no cyanosis, no calves pain. Urinary Catheter Management: Escamilla: Cath Placed During This Visit: yes, but has since been removed by the nurse Reason for Continuing Indwelling Catheter: Decision to DC Catheter Urinary Catheter Date of Insertion: 06/11/21 Urinary Catheter Time of Insertion: 07:08 Date Urinary Catheter Removed: 06/12/21 Time Urinary Catheter Discontinued: 04:00 History History History 5 Term 5 Miscarriages/Ectopic 0 0 Living Children 5 Discharge Data Studies Completed and Pending Pending at discharge Category Date Time Status Pathology: Surgical [PTH] Routine Pth 06/11/21 09:34 Received Laboratory Results WBC 15.9 10^3/uL (4.0-10.0) H 06/12/21 04:00 RBC 4.51 10^6/uL (4.1-5.3) 06/12/21 04:00 Hgb 14.0 g/dL (11.5-15.3) 06/12/21 04:00 Hct 42.9 % (37.0-47.0) 06/12/21 04:00 MCV 95.1 fl (81-99) 06/12/21 04:00 MCH 31.0 pg (28.0-34.0) 06/12/21 04:00 MCHC 32.6 g/dL (30.0-36.0) 06/12/21 04:00 RDW 16.1 % (12.1-15.1) H 06/12/21 04:00 Plt Count 235 10^3/cmm (130-400) 06/12/21 04:00 MPV 11.7 fL (7.4-10.4) H 06/12/21 04:00 Neut % (Auto) 59.0 % 06/11/21 07:05 Lymph % (Auto) 27.8 % 06/11/21 07:05 [place] % (Auto) 7.4 % 06/11/21 07:05 Eos % (Auto) 4.2 % 06/11/21 07:05 Baso % (Auto) 0.8 % 06/11/21 07:05 Neut # (Auto) 5.01 10^3/uL (1.8-7.7) 06/11/21 07:05 Lymph # (Auto) 2.4 10^3/uL (0.8-4.8) 06/11/21 07:05 [place] # (Auto) 0.6 10^3/uL (0.2-0.9) 06/11/21 07:05 Eos # (Auto) 0.4 10^3/uL (0.0-0.8) 06/11/21 07:05 Baso # (Auto) 0.1 10^3/uL (0.0-0.1) 06/11/21 07:05 Nucleated RBC % (auto) 0 % 06/11/21 07:05 Nucleated RBCs # 0.0 /100WBC 06/11/21 07:05 Sodium 137 mmol/L (136-145) 06/11/21 07:05 Potassium 4.4 mmol/L (3.5-5.1) 06/11/21 07:05 Chloride 105 mmol/L (98-107) 06/11/21 07:05 Carbon Dioxide 20 mmol/L (22-29) L 06/11/21 07:05 Anion Gap 16.4 (5-19) 06/11/21 07:05 BUN 13 mg/dL (6-20) 06/11/21 07:05 Creatinine 0.7 mg/dL (0.5-0.9) 06/11/21 07:05 GFR Calculation 94.2 mL/min (90-130) 06/11/21 07:05 Glucose 139 mg/dL (65-115) H 06/11/21 07:05 Calculated Osmolality 286 mOsm/kg (285-295) 06/11/21 07:05 Calcium 9.4 mg/dL (8.5-10.5) 06/11/21 07:05 Total Bilirubin 0.5 mg/dL (0.15-1.2) 06/11/21 07:05 AST 20 U/L (0-32) 06/11/21 07:05 ALT 14 U/L (0-33) 06/11/21 07:05 Alkaline Phosphatase 88 IU/L (35-105) 06/11/21 07:05 Total Protein 7.9 g/dL (6.6-8.7) 06/11/21 07:05 Albumin 4.6 g/dL (3.5-5.2) 06/11/21 07:05 Globulin 3.3 g/dL (1.3-4.6) 06/11/21 07:05 Urine Color Yellow (Yellow) 06/11/21 07:05 Urine Appearance Clear (CLEAR) 06/11/21 07:05 Urine pH 5 (5-7) 06/11/21 07:05 Ur Specific [place] 1.020 (1.005-1.030) 06/11/21 07:05 Urine Protein Neg (Negative) 06/11/21 07:05 Urine Glucose (UA) Norm (Normal) 06/11/21 07:05 Urine Ketones Negative (Negative) 06/11/21 07:05 Urine Blood Neg (Negative) 06/11/21 07:05 Urine Nitrate Negative (Negative) 06/11/21 07:05 Urine Bilirubin Neg (Negative) 06/11/21 07:05 Urine Urobilinogen Norm mg/dL (Negative) 06/11/21 07:05 Ur Leukocyte Esterase Negative (Negative) 06/11/21 07:05 Urine HCG, Qual Negative (Negative) 06/11/21 06:51 Blood Type A Positive 06/11/21 07:05 Rho(D) Type Positive 06/11/21 07:05 Antibody Screen Negative 06/11/21 07:05 Vitals Last Vital Signs Temp 97.5 F L 06/11/21 15:00 Pulse 52 L 06/12/21 04:10 Resp 16 06/12/21 04:10 BP 112/67 06/12/21 04:10 Pulse Ox 98 06/12/21 04:10 Discharge Plan Discharge Patient Disposition: Home Condition: Stable Prescriptions: New ibuprofen 800 mg tablet 800 mg PO TID PRN (Reason: pain) Qty: 60 0RF hydrocodone-acetaminophen 5-325 mg tablet 1 tab PO Q4H PRN (Reason: pain) Qty: 25 0RF acetaminophen 325 mg capsule 325 mg PO Q4H PRN (Reason: fever or pain) Qty: 60 0RF Continued ibuprofen 800 mg tablet 800 mg PO TID PRN (Reason: pain) Qty: 60 0RF Discharge Orders: Discharge Order (Routine); Ordered 06/12/21 Ordered By: Derick Calderon Referrals: Derick Calderon MD [Physician] - 06/24/21 8:30 am ( Your 2week follow up with Dr Calderon will be on June 24 at 8:30am Your 6week follow up with Dr Calderon will be July 22 at 8:45am) Discharge Diet: Usual diet Discharge Activity: Limit activity as instructed Patient Instructions: Hydrocodone/Acetaminophen (By mouth), Ibuprofen (By mouth), Vaginal Hysterectomy (GEN), OB Abdominal Surgery - [facility], OB Discharge Report, OB Food/Drug Interaction Guide, Opioid Safety Activity Restrictions/Additional Instructions: 1. Please call [facility] on next working day to make your post-operative appointment in 2 weeks. 2. Please stay home until you come back to the clinic on first post-operative check up. 3. Please follow instructions on your medications CAREFULLY. 4. If you have abdominal incision, do not cover it unless dressing is necessary because of drainage. OK to shower, but avoid bath. Leave steri-strips until they fall off. If they are still on one week after surgery, you may remove them. 5. If you had vaginal surgery or vaginal repair, Dr. Calderon may instruct you to take SITZ bath. 6. Yellow, blood tinged odorous vaginal discharge is usually normal after hysterectomy or vaginal surgeries. 7. No sexual intercourse, tampons, or douches until you are completely released from the post-operative care. 8. Avoid constipation by eating right and maybe using some Metamucil or Milk of Magnesia. 9. All prescription refills are given during the working hours. Please do no wait till it runs out. Call the clinic at [phone] before your medication runs out. The clinic will get in touch with your doctor to prescribe medications if necessary. 10. Please remain within 40 mile radius from our hospital because emergencies do happen now and then during the post-operative period. 11. If you have stairs at home, take one step at a time slowly and minimize the number of trips. It helps to stay in one floor for the next few days. No lifting except what you can lift by one hand until you are released from the post-operative care. 12. Driving is discouraged until you are well healed. It may be 3-4 weeks before you feel strong enough to drive. You should be able to turn and look through the rear window without pain and you should be able to push the brake pedal very hard without pain before you drive. No fast rules, but SAFETY should be your primary concern. DO NOT drive if you are on sedating medications such as narcotics. 13. Call the clinic (during working hours) to make urgent appointment or go to the Emergency room, if any of the following occurs: i. Vaginal bleeding becomes heavy, more than a period. ii. Incision becomes red and sore, or drains pus. iii. Your temperature is over 100.4 or you have chill. iv. IV site becomes red and swollen (a little ``knot?? is usually OK) v. Persistent nausea and vomiting vi. Persistent constipation or diarrhea vii. Rash or allergic reaction to medications. Discharge Attestations TREATING ENGINEER Time Spent in Discharge Care*: greater than 30 min Coding Level of Care Code Acute Advertising Manager for Isma Nguyen
[2021-06-12 12:35] VITALS: BP 118/76; PULSE 77; RESP 16; TEMP 36.7; O2SAT 96
== END 2021-06-12 12:45 | disposition home or self-care (01) ==
PROVIDERS: Admitting Provider Obstetrics & Gynecology; PCP Family Medicine; Visit Provider Obstetrics & Gynecology
PROC: (CPT 58260; principal; 2021-06-11 08:00)
DX: R10.2 Pelvic and perineal pain (principal); G89.29 Other chronic pain; J44.9 Chronic obstructive pulmonary disease, unspecified; F41.9 Anxiety disorder, unspecified; F32.9 Major depressive disorder, single episode, unspecified; F17.210 Nicotine dependence, cigarettes, uncomplicated
CPT/HCPCS: 58260; 36415; 80053; 81003; 81025; 84703; 85025; 85027; 86850; 86900; 88307; 96374; 96375; G0378; J0694; J1100; J1170; J1200; J1885; J2250; J2405; J2704; J2710; J3010; J3490; J7030; J7040

== ENCOUNTER 2022-05-14 18:52 | Emergency (ER) | payer MEDICAID, SELFPAY ==
[2022-05-14 19:04] VITALS: BP 133/81; PULSE 94; RESP 20; TEMP 36.6; O2SAT 99; BMI 26.7
[2022-05-14 19:48] LABS: Basophils # 0.1 10^3/uL (0.0-0.1); Basophils % 0.9 %; Eosinophils # 0.5 10^3/uL (0.0-0.8); Eosinophils % 5.1 %; Hematocrit 48.6 % (37.0-47.0); Hemoglobin 16.4 g/dL (11.5-15.3); Lymphocytes # 3.4 10^3/uL (0.8-4.8); Mean Corpuscular HGB Conc 33.7 g/dL (30.0-36.0); Mean Corpuscular Hemoglobin 32.9 pg (28.0-34.0); Mean Corpuscular Volume 97.4 fl (81-99); Mean Platelet Volume 10.6 fL (7.4-10.4); Monocytes # 0.6 10^3/uL (0.2-0.9); Monocytes % 5.8 %; Neutrophils % 51.4 %; Nucleated Red Blood Cells % 0 %; Platelet Count 286 10^3/cmm (130-400); Red Blood Count 4.99 10^6/uL (4.1-5.3); White Blood Count 9.6 10^3/uL (4.0-10.0)
[2022-05-14 20:03] LABS: HCG, Serum Qual Negative (Negative)
[2022-05-14 20:09] LABS: Alanine Aminotransferase 14 U/L (0-33); Albumin Level 4.5 g/dL (3.5-5.2); Alkaline Phosphatase 80 U/L (35-105); Anion Gap 15.6 (5-19); Aspartate Amino Transferase 18 U/L (0-32); Blood Urea Nitrogen 7 mg/dL (6-20); Carbon Dioxide 23 mmol/L (22-29); Chloride 105 mmol/L (98-107); Globulin 2.9 g/dL (1.3-4.6); Glomerular Filtration Rate 93.6 mL/min (90-130); Glucose 100 mg/dL (65-115); Lipase 34 U/L (13-60); Osmolality Calculated 288 mOsm/kg (285-295); Potassium 3.6 mmol/L (3.5-5.1); Sodium 140 mmol/L (136-145); Total Bilirubin 0.3 mg/dL (0.15-1.2); Total Protein 7.4 g/dL (6.6-8.7)
--- NOTE | 2022-05-14 20:47 | CTR_ITS ---
PROCEDURE INFORMATION: Exam: CT Abdomen And Pelvis With Contrast Exam date and time: 05/14/2022 9:28 PM Age: 36 years old Clinical indication: Abdominal pain; Localized; Right lower quadrant (rlq); Prior surgery; Surgery type: Gb. Appy. Hysterectomy. Tubal. Patient HX: C/O rlq pain. History of recent nephritis. TECHNIQUE: Imaging protocol: Computed tomography of the abdomen and pelvis with contrast. Radiation optimization: All CT scans at this facility use at least one of these dose optimization techniques: automated exposure control; mA and/or kV adjustment per patient size (includes targeted exams where dose is matched to clinical indication); or iterative reconstruction. Contrast material: OMNI 350; Contrast volume: 100 ml; Contrast route: INTRAVENOUS (IV); Other protocol: This patient has received 0 known CTs and 0 known cardiac nuclear medicine studies in the 12 months prior to the current study. COMPARISON: ES surgery / GI images 01/29/2021 2:03 PM RADIATION DOSE METRICS: Total DLP (mGy-cm): 557.83 FINDINGS: Liver: Normal. No mass. Gallbladder and bile ducts: Cholecystectomy. Pancreas: Normal. No ductal dilation. Spleen: Normal. No splenomegaly. Adrenal glands: Normal. No mass. Kidneys and ureters: Bilateral renal cysts, negative for follow-up advised. Stomach and bowel: Prominent fluid in the small bowel without dilation suggestive of an enteritis. Appendix: No evidence of appendicitis. Intraperitoneal space: Unremarkable. No free air. No significant fluid collection. Vasculature: Unremarkable. No abdominal aortic aneurysm. Lymph nodes: Unremarkable. No enlarged lymph nodes. Urinary bladder: Unremarkable as visualized. Reproductive: Unremarkable as visualized. Bones/joints: Unremarkable. No acute fracture. Soft tissues: Unremarkable. CT/CT abdomen pelvis w con* [id number] IMPRESSION: 1. Prominent fluid in the small bowel without dilation suggestive of an enteritis. 2. Cholecystectomy. 3. Bilateral renal cysts, negative for follow-up advised. COMMENTS: Consistent with the [employer]'s Incidental Findings Committee white paper (J Am Dalton Radiol 2018): Any incidental renal lesion less than 1 cm or classified as too small to characterize, or any incidental cystic renal lesion characterized as simple-appearing, is likely benign. No follow-up imaging is recommended for these lesions per consensus recommendations based on imaging criteria.
--- NOTE | 2022-05-14 20:57 | ED_ITS ---
HPI - Abdominal Pain General: Chief Complaint: Abdominal Pain Stated Complaint: lower abd pain, light headed Time Seen by Provider: 05/14/22 20:40 Source: patient Mode of arrival: ambulatory Limitations: no limitations History of Present Illness: 36-year-old female states she has been having right lower quadrant pain that wraps around her flank that started this afternoon. States it was a sharp pain worse pain was earlier was an 8 out of 10 states is actually improved is currently a 4 out of 10. She denies any fevers she denies any vomiting denies any worsening proving factors. Associated Symptoms: Denies chills, dysuria and fever(s) Related Data: Date of Last Menstrual Period: 05/26/21 Review of Systems Const: Denies: fever(s), chills, body aches or change in appetite Eyes: Denies: blurry vision or eye discomfort ENMT: Denies: throat pain or dental pain Card: Denies: chest pain Resp: Denies: dyspnea GI: Reports: abdominal pain : Denies: dysuria Musc: Denies: neck pain or back pain Skin/Breast: Denies: rash Neuro: Denies: headache(s) Psych: Denies: depression Alcon/Lymph: Denies: easy bruising All/Imm: Denies: urticaria PFSH ED PFSH: Medical History Aftercare following surgery of the genitourinary system EMPERATRIZ II (cervical intraepithelial neoplasia II) AN (generalized anxiety disorder) MDD (major depressive disorder) Surgical History H/O: hysterectomy 06/11/2021- TVH performed by Dr. Calderon at [facility] History of appendectomy History of cholecystectomy History of tubal ligation S/P conization of cervix 01/29/2021- diagnostic laparoscopy, lysis of adhesions, cervical cone biopsy performed by Dr. Calderon at [facility] Family History Mother Diabetes Other Cancer Denies family history of CAD (coronary artery disease) Clotting disorder Dementia Hyperlipidemia Psychiatric illness Chronic kidney disease (CKD) Suicide Anesthesia complication Bleeding disorder Lung disease Hypertension Stroke Social History Smoking and tobacco status: current every day smoker cigarettes Packs smoked per day: 1 Alcohol intake: current Alcohol intake frequency: 3 or more drinks per day Alcohol type: beer Current gender identity: Female Female Reproductive History: Date of last menstrual period: 05/26/21 Physical Exam Const: COMMON NORMALS: no acute distress, patient oriented x3 and healthy appearing HENMT: COMMON NORMALS: normocephalic and atraumatic HEAD & SCALP: normocephalic and atraumatic Eye: COMMON NORMALS: Equal, round and reactive pupils present and EOMs intact bilaterally PUPIL: Yes Equal, round and reactive pupils present Neck/C-Spine: COMMON NORMALS: full ROM and supple Chest: COMMONS NORMALS: normal inspection of the chest and normal palpation of entire chest wall Resp: COMMON NORMALS: normal respiratory effort, No retractions, No use of accessory muscles and clear to auscultation bilaterally AUSCULTATION: clear to auscultation bilaterally Cardio: COMMON NORMALS: regular rate, regular rhythm and No murmurs present (Cardio) RATE: regular rate RHYTHM: regular rhythm GI: COMMON NORMALS: Normal to inspection, nondistended, normoactive bowel sounds present, Soft to palpation and no masses PALPATION: Yes Soft to palpation and Yes Tenderness to palpation present (GI) Details: RLQ Extremity: COMMON NORMALS: normal to inspection and full ROM Neuro: COMMON NORMALS: patient oriented x3, moves all extremities and no focal motor deficits Psych: COMMON NORMALS: mental status grossly normal, Normal thought process present and cooperative THOUGHT PROCESS: Normal thought process present Skin: COMMON NORMALS: no rashes or lesions noted and no wounds GENERAL SKIN EXAM: no rashes or lesions noted Course Vital Signs: Vital signs: Vital Signs Temperature 97.8 F 05/14/22 19:04 Pulse Rate 94 05/14/22 19:04 Respiratory Rate 16 05/14/22 21:19 Blood Pressure 133/81 05/14/22 19:04 Pulse Oximetry 99 05/14/22 19:04 Oxygen Delivery Me thod 05/14/22 19:04 MDM - Abdominal Pain Medical Decision Making Patient presents here with abdominal pain her blood work and CT are normal her pain is much improved here exam is benign at discharge we will prescribe her Zofran she is to follow-up with her PCP and return if worsening. Lab Data 05/14/22 19:42 05/14/22 19:42 Labs/Radiology: Radiology Impressions Abdomen/Pelvis CT 05/14/22 20:47 IMPRESSION: 1. Prominent fluid in the small bowel without dilation suggestive of an enteritis. 2. Cholecystectomy. 3. Bilateral renal cysts, negative for follow-up advised. COMMENTS: Consistent with the [employer]'s Incidental Findings Committee white paper (J Am Dalton Radiol 2018): Any incidental renal lesion less than 1 cm or classified as too small to characterize, or any incidental cystic renal lesion characterized as simple-appearing, is likely benign. No follow-up imaging is recommended for these lesions per consensus recommendations based on imaging criteria. Laboratory Results WBC 9.6 10^3/uL (4.0-10.0) 05/14/22 19:42 RBC 4.99 10^6/uL (4.1-5.3) 05/14/22 19:42 Hgb 16.4 g/dL (11.5-15.3) H 05/14/22 19:42 Hct 48.6 % (37.0-47.0) H 05/14/22 19:42 MCV 97.4 fl (81-99) 05/14/22 19:42 MCH 32.9 pg (28.0-34.0) 05/14/22 19:42 MCHC 33.7 g/dL (30.0-36.0) 05/14/22 19:42 RDW 16.0 % (12.1-15.1) H 05/14/22 19:42 Plt Count 286 10^3/cmm (130-400) 05/14/22 19:42 MPV 10.6 fL (7.4-10.4) H 05/14/22 19:42 Neut % (Auto) 51.4 % 05/14/22 19:42 Lymph % (Auto) 36.0 % 05/14/22 19:42 [place] % (Auto) 5.8 % 05/14/22 19:42 Eos % (Auto) 5.1 % 05/14/22 19:42 Baso % (Auto) 0.9 % 05/14/22 19:42 Neut # (Auto) 4.90 10^3/uL (1.8-7.7) 05/14/22 19:42 Lymph # (Auto) 3.4 10^3/uL (0.8-4.8) 05/14/22 19:42 [place] # (Auto) 0.6 10^3/uL (0.2-0.9) 05/14/22 19:42 Eos # (Auto) 0.5 10^3/uL (0.0-0.8) 05/14/22 19:42 Baso # (Auto) 0.1 10^3/uL (0.0-0.1) 05/14/22 19:42 Nucleated RBC % (auto) 0 % 05/14/22 19:42 Nucleated RBCs # 0.0 /100WBC 05/14/22 19:42 Sodium 140 mmol/L (136-145) 05/14/22 19:42 Potassium 3.6 mmol/L (3.5-5.1) 05/14/22 19:42 Chloride 105 mmol/L (98-107) 05/14/22 19:42 Carbon Dioxide 23 mmol/L (22-29) 05/14/22 19:42 Anion Gap 15.6 (5-19) 05/14/22 19:42 BUN 7 mg/dL (6-20) 05/14/22 19:42 Creatinine 0.7 mg/dL (0.5-0.9) 05/14/22 19:42 GFR Calculation 93.6 mL/min (90-130) 05/14/22 19:42 Glucose 100 mg/dL (65-115) 05/14/22 19:42 Calculated Osmolality 288 mOsm/kg (285-295) 05/14/22 19:42 Calcium 9.0 mg/dL (8.5-10.5) 05/14/22 19:42 Total Bilirubin 0.3 mg/dL (0.15-1.2) 05/14/22 19:42 AST 18 U/L (0-32) 05/14/22 19:42 ALT 14 U/L (0-33) 05/14/22 19:42 Alkaline Phosphatase 80 U/L (35-105) 05/14/22 19:42 Total Protein 7.4 g/dL (6.6-8.7) 05/14/22 19:42 Albumin 4.5 g/dL (3.5-5.2) 05/14/22 19:42 Globulin 2.9 g/dL (1.3-4.6) 05/14/22 19:42 Lipase 34 U/L (13-60) 05/14/22 19:42 HCG, Qual Negative (Negative) 05/14/22 19:42 Urine Color Yellow (Yellow) 05/14/22 21:02 Urine Appearance Clear (CLEAR) 05/14/22 21:02 Urine pH 7 (5-7) 05/14/22 21:02 Ur Specific [place] 1.015 (1.005-1.030) 05/14/22 21:02 Urine Protein Neg (Negative) 05/14/22 21:02 Urine Glucose (UA) Norm (Normal) 05/14/22 21:02 Urine Ketones 1+ (Negative) H 05/14/22 21:02 Urine Blood Neg (Negative) 05/14/22 21:02 Urine Nitrate Negative (Negative) 05/14/22 21:02 Urine Bilirubin Neg (Negative) 05/14/22 21:02 Urine Urobilinogen Norm mg/dL (Negative) 05/14/22 21:02 Ur Leukocyte Esterase Negative (Negative) 05/14/22 21:02 Discharge Plan Discharge Patient Disposition: Home Clinical Impression: Abdominal pain Condition: Stable Prescriptions: No Action hydrocodone-acetaminophen 5-325 mg tablet 1 tab PO Q6H PRN (Reason: pain) 7 Days Qty: 14 0RF ibuprofen 800 mg tablet 800 mg PO TID PRN (Reason: pain) Qty: 60 0RF acetaminophen 325 mg capsule 325 mg PO Q4H PRN (Reason: fever or pain) Qty: 60 0RF Discharge Orders: Discharge ED (Routine); Ordered 05/14/22 Ordered By: Nikhil Huerta Referrals: Chris Weinberg MD [Primary Care Provider] - 1-3 days Discharge Diet: Advance as tolerated Discharge Activity: Resume usual activity Patient Instructions: Abdominal Pain (ED) Coding Level of Care Code ED 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
[2022-05-14 21:06] LABS: Add Urine Microscopic? NO; Charge for UA Resulting for Rev
[2022-05-14 21:19] VITALS: RESP 16
[2022-05-14] MEDS: ondansetron 2 mg/ML SDV 2 mL 4 MG IVP (21:19)
[2022-05-14] MEDS: morphine 4 mg/mL SDV 1 mL IVP (21:19)
[2022-05-14] MEDS: iohexol 350 mg/mL 500 mL Btl (per mL) IV (21:25)
[2022-05-14 21:28] LABS: Bilirubin Urine Neg (Negative); Blood Urine Neg (Negative); Glucose Urine UA Norm (Normal); Ketones Urine 1+ (Negative); Nitrate Urine Negative (Negative); Protein Urine Neg (Negative); Specific Gravity, Urine 1.015 (1.005-1.030); Urine Appearance Clear (CLEAR); Urine Color Yellow (Yellow); pH Urine 7 (5-7)
[2022-05-14 21:29] LABS: Leukocyte Esterase Urine Negative (Negative); Urobilinogen Urine Norm (Negative)
[2022-05-14 22:38] VITALS: BP 114/73; PULSE 60; RESP 16; O2SAT 97
== END 2022-05-14 22:39 | disposition home or self-care (01) ==
PROVIDERS: Emergency Provider Emergency Medicine; PCP Family Medicine
DX: R10.32 Left lower quadrant pain (principal)
CPT/HCPCS: 36415; 74177; 80053; 81003; 83690; 84703; 85025; 96374; 96375; 99285; J2270; J2405; Q9967

== ENCOUNTER → 2022-11-09 14:49 | Outpatient (BNVA) | payer MEDICAID, SELFPAY | PROVIDERS: PCP Family Medicine; Visit Provider Family Medicine | DX: F32.9 Major depressive disorder, single episode, unspecified (principal) | CPT/HCPCS: 80053; 80061; 84439; 84443 ==

== ENCOUNTER → 2024-01-11 12:02 | Outpatient (BNVA) | payer MEDICAID, SELFPAY | PROVIDERS: PCP Family Medicine; Visit Provider Family Medicine | DX: E66.3 Overweight (principal) | CPT/HCPCS: 80053; 80061; 84439; 84443; 85025 ==

== ENCOUNTER 2024-03-14 12:30 | Outpatient (CLI) | payer MEDICAID, SELFPAY ==
--- NOTE | 2024-03-14 12:35 | XR_ITS ---
WS: [id number] XR lumbar spine 2-3V* [id number] REASON FOR EXAM: Fell off of a horse neck and back pain FINDINGS: Normal lumbar spine curvatures. No vertebral body abnormality. Intervertebral disc spaces are intact and relatively well preserved. No spondylolysis or spondylolisthesis. XR/XR lumbar spine 2-3V* [id number] IMPRESSION: No significant abnormality.
--- NOTE | 2024-03-14 12:35 | XR_ITS ---
WS: [email or web address] XR thoracic spine 3V* [id number] REASON FOR EXAM: Fell off of a horse neck and back pain FINDINGS: Normal thoracic spine curvatures. No thoracic vertebral body abnormality. Intervertebral disc spaces are relatively well-preserved. Minimal osteophytosis in the mid and lower thoracic spine. XR/XR thoracic spine 3V* [id number] IMPRESSION: Minimal degenerative spondylosis.
--- NOTE | 2024-03-14 12:35 | XR_ITS ---
WS: [email or web address] XR cervical spine 3V* [id number] REASON FOR EXAM: Fell off of a horse neck and back pain FINDINGS: Straightening of the normal lordosis of the cervical spine. Normal odontoid and cervical vertebral bodies. Moderate disc space narrowing C4-C7 with moderate posterior and anterior osteophytosis. No facet joint abnormality. XR/XR cervical spine 3V* [id number] IMPRESSION: No acute abnormality. Multilevel degenerative spondylosis as above.
--- NOTE | 2024-03-14 12:35 | XR_ITS ---
WS: [email or web address] XR hip LT 2-3V wo/w pel* [id number] REASON FOR EXAM: left hip pain fell off horse FINDINGS: No fracture or focal bone lesion. Hip joint spaces intact and relatively well preserved. Mild subchondral sclerosis with mild osteophytosis of the acetabulum. Mild osteophytosis of the femor al head. XR/XR hip LT 2-3V wo/w pel* [id number] IMPRESSION: No acute abnormality. Mild osteoarthritis of the left hip.
== END 2024-03-14 12:31 | disposition home or self-care (01) ==
PROVIDERS: PCP Family Medicine; Visit Provider Nurse Practitioner Family
DX: M99.61 Osseous and subluxation stenosis of intervertebral foramina of cervical region (principal); M25.78 Osteophyte, vertebrae; M25.552 Pain in left hip; Y93.52 Activity, horseback riding
CPT/HCPCS: 72040; 72072; 72100; 73502

== ENCOUNTER 2024-03-25 11:55 | Emergency (ER) | payer MEDICAID, SELFPAY ==
--- NOTE | 2024-03-25 11:56 | XRR_ITS ---
PROCEDURE INFORMATION: Exam: XR Right Knee Exam date and time: 03/25/2024 12:46 PM Age: 38 years old Clinical indication: Injury or trauma; Fall; Blunt trauma; Knee; Injury date: 03/24/2024; Injury details: PT states she jumped over a barbed wire fence yesterday and landed on her right leg wrong. PT states she is unsure if she heard a pop or not. PT states she cannot walk on right leg. TECHNIQUE: Imaging protocol: Radiologic exam of the right knee. Views: 3 views. Total images: 1 COMPARISON: No relevant prior studies available. FINDINGS: Bones/joints: Small joint effusion. No acute fracture nor subluxation. No osseous erosion nor periosteal reaction. Soft tissues: Normal. XR/XR knee RT 3V* [id number] IMPRESSION: 1. Small joint effusion. 2. No acute osseous pathology.
[2024-03-25 12:30] VITALS: BP 119/73; PULSE 69; RESP 17; TEMP 36.6; O2SAT 98; BMI 29.4
--- NOTE | 2024-03-25 12:48 | ED_ITS ---
HPI - Extremity Problem General: Chief complaint: Extremity Injury, Lower Stated complaint: Right knee injury, pain Time Seen by Provider: 03/25/24 12:42 History of Present Illness: 38-year-old female who says she was tryi ng to jump a fence and did not make it she fell and injured her right knee. She has some swelling above the knee. Tenderness palpation. No obvious deformities. Neurovascularly intact. She also has some abrasions on her right hand. She requested tetanus vaccination. Related Data Home Medications Medication Instructions Recorded Confirmed cetirizine 10 mg tablet (Zyrtec) 10 mg PO DAILY allergy symptoms 03/25/24 03/25/24 clonazepam 1 mg tablet 1 mg PO TID PRN Anxiety 03/25/24 03/25/24 Previous Rx's Medication Instructions Recorded fluoxetine 20 mg capsule (Prozac) 20 mg PO DAILY #90 caps 02/23/24 fluoxetine 40 mg capsule (Prozac) 40 mg PO DAILY #90 caps 02/23/24 ibuprofen 800 mg tablet 800 mg PO Q6H PRN pain #90 tabs 03/14/24 diclofenac sodium 50 mg 50 mg PO BID PRN pain #14 tabs 03/25/24 tablet,delayed release Allergies Allergy/AdvReac Type Severity Reaction Status Date / Time No Known Allergies Allergy Verified 01/11/24 11:21 Review of Systems Narrative: Constitutional symptoms: Negative except as documented in HPI. Skin symptoms: Negative except as documented in HPI. Eye symptoms: Negative except as documented in HPI. ENMT symptoms: Negative except as documented in HPI. Respiratory symptoms: Negative except as documented in HPI. Cardiovascular symptoms: Negative except as documented in HPI. Gastrointestinal symptoms: Negative except as documented in HPI. Genitourinary symptoms: Negative except as documented in HPI. Musculoskeletal symptoms: Negative except as documented in HPI. Neurologic symptoms: Negative except as documented in HPI. Psychiatric symptoms: Negative except as documented in HPI. Endocrine symptoms: Negative except as documented in HPI. PFSH ED PFSH: Medical History Post-traumatic stress disorder, chronic EMPERATRIZ II (cervical intraepithelial neoplasia II) MDD (major depressive disorder) AN (generalized anxiety disorder) Surgical History Status post vaginal hysterectomy H/O: hysterectomy 06/11/2021- TVH performed by Dr. Calderon at [facility] History of appendectomy History of cholecystectomy History of tubal ligation S/P conization of cervix 01/29/2021- diagnostic laparoscopy, lysis of adhesions, cervical cone biopsy performed by Dr. Calderon at [facility] Family History Mother Diabetes Cancer cervical Grandmother Cancer Maternal-colon Family/Other Cancer Maternal aunt-ovarian Denies family history of CAD (coronary artery disease) Clotting disorder Dementia Hyperlipidemia Psychiatric illness Chronic kidney disease (CKD) Suicide Anesthesia complication Bleeding disorder Lung disease Hypertension Stroke Social History Smoking and tobacco/nicotine status: tobacco/nicotine user, details unknown cigarettes Packs smoked per day: 0.5 Alcohol intake: former Substance/Drug Use: never Lives independently: Yes Marital status: Single Number of children: 5 Current occupational status: employed 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 Skin: warm and dry Head: Normocephalic Neck: Trachea midline Eye: Extraocular movements are intact. Ears, nose, mouth and throat: Oral mucosa moist Respiratory: Respirations are non-labored Musculoskeletal: Normal ROM Neurological: Alert and oriented, No focal neurological deficit observed. Psychiatric: Cooperative, appropriate mood & affect. Course Vital Signs: Vital signs: Vital Signs Temperature 97.9 F 03/25/24 12:30 Pulse Rate 69 03/25/24 12:30 Respiratory Rate 17 03/25/24 12:30 Blood Pressure 119/73 03/25/24 12:30 Pulse Oximetry 98 03/25/24 12:30 Oxygen Delivery Me thod Room Air 03/25/24 12:30 MDM - Extremity (Nontraumatic) Medical Decision Making X-ray of the right knee: No deformity. No fracture. Small joint effusion. This was reviewed and interpreted by myself the emergency room physician. I also reviewed the radiology report. Assessment and plan: Knee injury Hand abrasion ? Life-saving tetanus was administered. ? IM Toradol declined ?Crutches and an Nick bandage supplied to the patient - Discharged home - Discussed plan with patient. Answered any questions. - Evaluation and treatment of this problem were appropriate in the emergency setting. Lab Data Radiology Impressions Knee X-Ray 03/25/24 11:56 IMPRESSION: 1. Small joint effusion. 2. No acute osseous pathology. All radiology interpretation(s) finalized by discharge Discharge Plan Discharge Patient Disposition: Home Clinical Impression: Knee injury, Hand abrasion Condition: Stable Prescriptions: New diclofenac sodium 50 mg tablet,delayed release (DR/EC) 50 mg PO BID PRN (Reason: pain) Qty: 14 0RF No Action ibuprofen 800 mg tablet 800 mg PO Q6H PRN (Reason: pain) Qty: 90 0RF fluoxetine [Prozac] 20 mg capsule 20 mg PO DAILY Qty: 90 0RF Rx Instructions: along with 40mg to= 60mg daily. fluoxetine [Prozac] 40 mg capsule 40 mg PO DAILY Qty: 90 0RF Rx Instructions: along with 20mg to= 60mg daily cetirizine [Zyrtec] 10 mg tablet 10 mg PO DAILY clonazepam 1 mg tablet 1 mg PO TID PRN (Reason: Anxiety) Discharge Orders: Discharge ED (Routine); Ordered 03/25/24 Ordered By: Blaire Oswald Referrals: Ben Pearson DO [Physician] - 4-7 days (Call for an appointment if pain in your knee persists.) Del Sena MD [Primary Care Provider] - Discharge Diet: Usual diet Patient Instructions: Crutch Instructions (ED), Opioid Safety, Pain Management Activity Restrictions/Additional Instructions: Thank you for choosing [facility] for your healthcare needs today. Please realize this is an emergency room and that we are providing you with a medical screening exam and this may not be complete and all inclusive of all the testing and or work up that you may need to determine your ailment or severity of your illness. You have been screened and evaluated and felt safe for discharge. Health conditions do change or evolve sometimes and as such it is important that you follow up with your Primary Doctor to be re checked, 3-5 days is a general good time frame for follow up. You are always welcome to return to the ED for re assessment if your symptoms are worsening or you have new concerns Coding Level of Care Code ED Environmental Services Assistant for Isma Nguyen
[2024-03-25] MEDS: tetanus-dipt-pertussis 0.5 mL SDV IM (13:05)
--- NOTE | 2024-03-25 13:20 | PC.PHAR ---
Pt states only took her Prozac today. Pt wanted Tizanidine 4mg removed from med list, does not want to take.
[2024-03-25 13:56] VITALS: BP 123/82; PULSE 54; O2SAT 97
== END 2024-03-25 13:57 | disposition home or self-care (01) ==
PROVIDERS: Emergency Provider Emergency Medicine; PCP Family Medicine
DX: S89.91XA Unspecified injury of right lower leg, initial encounter (principal); S60.511A Abrasion of right hand, initial encounter; F17.210 Nicotine dependence, cigarettes, uncomplicated; W19.XXXA Unspecified fall, initial encounter
CPT/HCPCS: 73562; 90471; 90715; 99284; E0114

== ENCOUNTER 2024-05-22 11:48 | Outpatient (CLI) | payer MEDICAID, SELFPAY ==
--- NOTE | 2024-05-22 11:45 | MR_ITS ---
WS: [id number] MRI RIGHT KNEE HISTORY: traumatic R knee injury COMPARISON: Radiograph 03/25/2024 Anterior cruciate ligament: Abnormal contour of the ACL with increased fluid. There is a partial tear of the ACL. The posterior fibers are intact. Posterior cruciate ligament: Intact. Medial collateral ligament: Intact. Posterior lateral corner structures: Intact. Medial menisci: Intact. Normal signal, size and shape. Lateral meniscus: Intact. Normal signal, size and shape. Extensor mechanism: Distal quadriceps tendon and patellar tendons are intact. Fluid and soft tissue: Small suprapatellar joint effusion. No Lui's cyst. Osseous and articular structures: Patellofemoral compartment: Normal. Medial compartment: Normal medial compartment. No full-thickness cartilage defects. No marrow edema. Lateral compartment: Normal. No marrow edema. Seen best on the coronal T2 fat-saturated images are small loose bodies in the anterior joint measuring up to 4 mm. MR/MR knee RT wo con* [id number] IMPRESSION: 1. Partial tear of the ACL. 2. No fracture or marrow edema. 3. No meniscal tear. 4. Small intra-articular bodies in the anterior joint measure up to 4 mm. Sour ce of these loose bodies is not determined. No donor site of cartilage is ident ified.
== END 2024-05-22 11:49 | disposition home or self-care (01) ==
LOC: RAD 11:49
PROVIDERS: PCP Family Medicine; Visit Provider Family Medicine
DX: S83.511A Sprain of anterior cruciate ligament of right knee, initial encounter (principal); X58.XXXA Exposure to other specified factors, initial encounter; R93.6 Abnormal findings on diagnostic imaging of limbs
CPT/HCPCS: 73721

== ENCOUNTER 2024-11-13 13:15 | Emergency (ER) | payer OTHER, SELFPAY ==
[2024-11-13 13:18] VITALS: BP 137/81; PULSE 65; RESP 16; TEMP 36.8; O2SAT 97; BMI 29.0
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
[2024-11-13 14:35] VITALS: BP 130/76; PULSE 68; RESP 16; O2SAT 98
== END 2024-11-13 14:36 | disposition home or self-care (01) ==
PROVIDERS: Emergency Provider Physician Assistant; PCP Family Medicine
DX: S16.1XXA Strain of muscle, fascia and tendon at neck level, initial encounter (principal); F17.210 Nicotine dependence, cigarettes, uncomplicated; V89.2XXA Person injured in unspecified motor-vehicle accident, traffic, initial encounter
CPT/HCPCS: 72040; 99283